=== PATIENT | male | born 1955 | race Caucasian/White ===

== ENCOUNTER 2020-03-01 18:20 | Emergency (ER) | payer BC, SELFPAY ==
[~2020-03-01] VITALS: Ht 165.1 cm; Wt 73.9 kg
[2020-03-01] MEDS ORDERED: KETOROLAC TROMETHAMINE 60 MG/2 ML VIAL IM ONE (18:30)
[2020-03-01 18:32] VITALS: BP_SYST 153
[2020-03-01 19:12] LABS: MEAN CORPUSCULAR VOLUME 86 fL (79.0-98.0); WHITE BLOOD COUNT (AUTO) 17.3 K/uL (4.8-10.8)
[2020-03-01 19:17] LABS: BASOPHILS % (AUTO) 0.2 % (0.0-2.0); HEMATOCRIT 40.1 % (36-54); HEMOGLOBIN 13.9 g/dL (14.0-18.0); LYMPHOCYTES # (AUTO) 0.6 K/uL (1.0-5.5); LYMPHOCYTES % (AUTO) 3.7 % (20.5-51.5); MEAN CORPUSCULAR HEMOGLOBIN 30 pg (27-31); MEAN CORPUSCULAR HGB CONC 35 % (32-36); MONOCYTES # (AUTO) 0.9 K/uL (0.0-1.0); NEUTROPHILS # (AUTO) 15.8 K/uL (1.8-7.7); NEUTROPHILS % (AUTO) 91.1 % (40.0-70.0); PLATELET COUNT (AUTO) 224 K/uL (130-430); RED BLOOD CELL COUNT(AUTO) 4.67 MIL/uL (4.2-6.2); RED CELL DISTRIBUTION WIDTH 14.7 % (9.0-15.0)
[2020-03-01 19:21] LABS: CREATININE 1.03 mg/dL (0.55-1.30); POTASSIUM 3.6 mmol/L (3.5-5.1)
[2020-03-01 19:25] LABS: BILIRUBIN,URINE NEGATIVE (NEGATIVE); BLOOD, URINE 1+ (NEGATIVE); CLARITY/URINE CLEAR (CLEAR); COLOR,URINE YELLOW (YELLOW); GLUCOSE,URINE 3+ (NEGATIVE); KETONES,URINE 2+ (NEGATIVE); LEUKOCYTE ESTERASE ,URINE NEGATIVE (NEGATIVE); NITRITE, URINE NEGATIVE (NEGATIVE); PROTEIN URINE 3+ (NEGATIVE); UROBILINOGEN,URINE 0.2 (0.2-1.0)
[2020-03-01 19:26] LABS: ALBUMIN 3.4 g/dL (3.4-4.8)
[2020-03-01 19:27] LABS: PROTHROMBIN TIME 10.3 SECS (9.5-12.5)
[2020-03-01 19:39] LABS: BACTERIA,URINE FEW /HPF (None Seen); WBC,URINE 0-3 /HPF (0-3)
[2020-03-01] MEDS ORDERED: PIPERACILLIN/TAZO 3.375 GM in NS 50 ML IV ONE (20:30)
[2020-03-01] MEDS ORDERED: CIPROFLOXACIN HCL 500 MG TABLET PO ONE (22:15)
[2020-03-01] MEDS ORDERED: metroNIDAZOLE 500 MG TABLET PO ONE (22:15)
[2020-03-01] MEDS ORDERED: metroNIDAZOLE 500 MG TABLET ONE (22:27)
[2020-03-01 23:00] VITALS: BP_SYST 132
[2020-03-02] MEDS ORDERED: GLIP10TA21 PO (18:37)
[2020-03-02] MEDS ORDERED: METF1000 PO (18:37)
[2020-03-02] MEDS ORDERED: CARV25TA55 PO (18:37)
[2020-03-02] MEDS ORDERED: NOR10 PO (18:37)
[2020-03-02] MEDS ORDERED: BENA40TA8 PO (18:37)
[2020-03-02] MEDS ORDERED: CANA100T PO (18:37)
[2020-03-02] MEDS ORDERED: LIP40 PO (18:37)
[2020-03-02] MEDS ORDERED: CAT.2 PO (18:37)
[2020-03-02] MEDS ORDERED: SAXA5TAB PO (18:37)
== END 2020-03-01 23:00 | disposition home or self-care (01) ==
LOC: SED 18:20
DX: K80.20 Calculus of gallbladder without cholecystitis without obstruction (principal); I10 Essential (primary) hypertension; E11.9 Type 2 diabetes mellitus without complications; Z20.822 Contact with and (suspected) exposure to COVID-19
CPT/HCPCS: 36415; 74176; 76376; 76700; 80053; 81000; 82150; 83605; 83615; 83690; 85025; 85610; 85730; 87040; 87426; 96372; 99285; J1885

== ENCOUNTER 2020-03-02 15:20 | Inpatient (IN) | payer BC, OTHER, SELFPAY ==
[~2020-03-02] VITALS: Ht 165.1 cm; Wt 74.4 kg
[2020-03-02 15:30] VITALS: BP_SYST 127
[2020-03-02] MEDS ORDERED: ONDANSETRON HCL 4 MG/2 ML VIAL IVP ONE (15:30)
[2020-03-02] MEDS ORDERED: MAG HYDROX/AL HYDROX/SIMETH 30 ML, DICYCLOMINE HCL 20 MG, LIDOCAINE VISCOUS 2% 15ML (PO... PO ONE ×3 (15:30)
[2020-03-02] MEDS ORDERED: MORPHINE 4 MG/ML INJ. SYRINGE IVP ONE (15:30)
[2020-03-02] MEDS ORDERED: LIDOCAINE VISCOUS 2%, 15 ML UDC ONE (16:10)
[2020-03-02] MEDS ORDERED: MAG-AL HYDROX/SIMETH 30 ML UDC ONE (16:10)
[2020-03-02] MEDS ORDERED: DICYCLOMINE HCL 10 MG/5 ML SOLUTION ONE (16:11)
[2020-03-02 16:15] LABS: BASOPHILS # (AUTO) 0.1 K/uL (0.0-0.2); BASOPHILS % (AUTO) 0.6 % (0.0-2.0); EOSINOPHILS % (AUTO) 0.1 % (0.0-4.0); HEMATOCRIT 37.6 % (36-54); HEMOGLOBIN 12.9 g/dL (14.0-18.0); LYMPHOCYTES # (AUTO) 0.6 K/uL (1.0-5.5); LYMPHOCYTES % (AUTO) 3.3 % (20.5-51.5); MEAN CORPUSCULAR HEMOGLOBIN 30 pg (27-31); MEAN CORPUSCULAR HGB CONC 34 % (32-36); MEAN CORPUSCULAR VOLUME 86 fL (79.0-98.0); MONOCYTES # (AUTO) 1.1 K/uL (0.0-1.0); MONOCYTES % (AUTO) 5.9 % (1.7-9.3); NEUTROPHILS # (AUTO) 16.8 K/uL (1.8-7.7); NEUTROPHILS % (AUTO) 90.1 % (40.0-70.0); PLATELET COUNT (AUTO) 195 K/uL (130-430); RED BLOOD CELL COUNT(AUTO) 4.35 MIL/uL (4.2-6.2); RED CELL DISTRIBUTION WIDTH 14.6 % (9.0-15.0); WHITE BLOOD COUNT (AUTO) 18.6 K/uL (4.8-10.8)
[2020-03-02 16:24] LABS: CALCIUM 8.6 mg/dL (8.4-11.0); CREATININE 1.29 mg/dL (0.55-1.30); POTASSIUM 4.1 mmol/L (3.5-5.1)
[2020-03-02 16:26] LABS: INR 1.1 (0.80-1.20); PROTHROMBIN TIME 10.9 SECS (9.5-12.5)
[2020-03-02 16:30] LABS: TOTAL BILIRUBIN 1.1 mg/dL (0.0-1.0)
[2020-03-02 16:49] LABS: BILIRUBIN,URINE NEGATIVE (NEGATIVE); BLOOD, URINE 1+ (NEGATIVE); CLARITY/URINE CLEAR (CLEAR); COLOR,URINE YELLOW (YELLOW); GLUCOSE,URINE 3+ (NEGATIVE); KETONES,URINE 1+ (NEGATIVE); LEUKOCYTE ESTERASE ,URINE NEGATIVE (NEGATIVE); NITRITE, URINE NEGATIVE (NEGATIVE); PH,URINE 5.5 (5.0-8.0); PROTEIN URINE 2+ (NEGATIVE); UROBILINOGEN,URINE 0.2 (0.2-1.0)
[2020-03-02 16:55] LABS: BACTERIA,URINE FEW /HPF (None Seen); MUCUS,URINE None Seen /LPF (None Seen); RBC,URINE 0-3 /HPF (0-3); WBC,URINE 0-3 /HPF (0-3)
[2020-03-02] MEDS ORDERED: KCL 20 mEq in D5/0.45NS 1000mL 1,000 ML IV ONE (18:15)
[2020-03-02] MEDS ORDERED: cefTRIAXone 1 GM VIAL IM ONE (18:15)
[2020-03-02] MEDS ORDERED: metroNIDAZOLE 500 mg/NS 100 ML IV ONE (18:15)
[2020-03-02] MEDS ORDERED: CANA100T PO (18:37)
[2020-03-02] MEDS ORDERED: CAT.2 PO (18:37)
[2020-03-02] MEDS ORDERED: CARV25TA55 PO (18:37)
[2020-03-02] MEDS ORDERED: GLIP10TA21 PO (18:37)
[2020-03-02] MEDS ORDERED: NOR10 PO (18:37)
[2020-03-02] MEDS ORDERED: METF1000 PO (18:37)
[2020-03-02] MEDS ORDERED: LIP40 PO (18:37)
[2020-03-02] MEDS ORDERED: BENA40TA8 PO (18:37)
[2020-03-02] MEDS ORDERED: SAXA5TAB PO (18:37)
[2020-03-02 22:44] VITALS: BP_SYST 151
[2020-03-02] MEDS ORDERED: ONDANSETRON HCL 4 MG/2 ML VIAL IVP PRN (23:45)
[2020-03-03] VITALS: BP_SYST 152
[2020-03-03] MEDS: HYDROmorphone 1 MG INJ. 1 MG/ML AMPUL IVP PRN ×2 (00:10→06:24)
[2020-03-03] MEDS ORDERED: metroNIDAZOLE 500 mg/NS 100 ML IV ONE (03:57)
[2020-03-03] MEDS: metroNIDAZOLE 500 mg/NS 100 ML IV SCH ×3 (05:34→22:32)
[2020-03-03] MEDS: INSULIN REGULAR, HUMAN 100 UNITS/ML, 10 ML VIAL (humuLIN R) SUBCUT PRN ×2 (06:23→22:35)
[2020-03-03 07:22] LABS: BASOPHILS % (AUTO) 0.2 % (0.0-2.0); HEMATOCRIT 37.2 % (36-54); LYMPHOCYTES # (AUTO) 0.5 K/uL (1.0-5.5); LYMPHOCYTES % (AUTO) 3.1 % (20.5-51.5); MEAN CORPUSCULAR HEMOGLOBIN 30 pg (27-31); MEAN CORPUSCULAR HGB CONC 35 % (32-36); MEAN CORPUSCULAR VOLUME 86 fL (79.0-98.0); MONOCYTES % (AUTO) 6.1 % (1.7-9.3); NEUTROPHILS # (AUTO) 14.1 K/uL (1.8-7.7); NEUTROPHILS % (AUTO) 90.6 % (40.0-70.0); PLATELET COUNT (AUTO) 184 K/uL (130-430); RED BLOOD CELL COUNT(AUTO) 4.32 MIL/uL (4.2-6.2); RED CELL DISTRIBUTION WIDTH 14.4 % (9.0-15.0); WHITE BLOOD COUNT (AUTO) 15.6 K/uL (4.8-10.8)
[2020-03-03 08:00] VITALS: BP_SYST 166
[2020-03-03 08:14] LABS: ALBUMIN 2.8 g/dL (3.4-4.8); CALCIUM 8.4 mg/dL (8.4-11.0); CREATININE 0.95 mg/dL (0.55-1.30); POTASSIUM 3.7 mmol/L (3.5-5.1); TOTAL BILIRUBIN 1.1 mg/dL (0.0-1.0)
[2020-03-03] MEDS: CARVEDILOL 25 MG TABLET (COREG) PO SCH ×2 (08:42→22:32)
[2020-03-03] MEDS: ENOXAPARIN SODIUM 40 MG/0.4 ML SYRINGE SUBCUT SCH ×2 (08:43→08:49)
[2020-03-03 16:19] VITALS: BP_SYST 118
[2020-03-03 20:00] VITALS: BP_SYST 134
[2020-03-04] MEDS: metroNIDAZOLE 500 mg/NS 100 ML IV SCH ×3 (05:51→22:00)
[2020-03-04] MEDS: INSULIN REGULAR, HUMAN 100 UNITS/ML, 10 ML VIAL (humuLIN R) SUBCUT PRN ×3 (06:03→18:33)
[2020-03-04 06:59] LABS: BASOPHILS % (AUTO) 0.1 % (0.0-2.0); HEMATOCRIT 34.2 % (36-54); LYMPHOCYTES # (AUTO) 0.3 K/uL (1.0-5.5); LYMPHOCYTES % (AUTO) 3.7 % (20.5-51.5); MEAN CORPUSCULAR HEMOGLOBIN 30 pg (27-31); MEAN CORPUSCULAR HGB CONC 35 % (32-36); MEAN CORPUSCULAR VOLUME 87 fL (79.0-98.0); MONOCYTES # (AUTO) 0.5 K/uL (0.0-1.0); NEUTROPHILS # (AUTO) 8.2 K/uL (1.8-7.7); NEUTROPHILS % (AUTO) 90.2 % (40.0-70.0); PLATELET COUNT (AUTO) 175 K/uL (130-430); RED BLOOD CELL COUNT(AUTO) 3.95 MIL/uL (4.2-6.2); RED CELL DISTRIBUTION WIDTH 14.3 % (9.0-15.0); WHITE BLOOD COUNT (AUTO) 9.1 K/uL (4.8-10.8)
[2020-03-04 07:45] LABS: ALBUMIN 2.3 g/dL (3.4-4.8); CALCIUM 8.1 mg/dL (8.4-11.0); CREATININE 0.89 mg/dL (0.55-1.30); POTASSIUM 3.6 mmol/L (3.5-5.1); TOTAL BILIRUBIN 0.6 mg/dL (0.0-1.0)
[2020-03-04 07:50] VITALS: BP_SYST 129
[2020-03-04] MEDS: CARVEDILOL 25 MG TABLET (COREG) PO SCH ×2 (09:16→23:51)
[2020-03-04] MEDS: ENOXAPARIN SODIUM 40 MG/0.4 ML SYRINGE SUBCUT SCH (09:17)
[2020-03-04] MEDS ORDERED: CARVEDILOL 25 MG TABLET (COREG) PO ONE (11:00)
[2020-03-04] MEDS ORDERED: CANAGLIFLOZIN 100 MG TABLET PO SCH (11:00)
[2020-03-04 12:09] VITALS: BP_SYST 163
[2020-03-04 17:00] VITALS: BP_SYST 145
[2020-03-04] MEDS: metFORMIN HCL 500 MG TABLET PO SCH (18:31)
[2020-03-04] MEDS: glipiZIDE XL 5 MG TAB ( GLUCOTROL XL) PO SCH (23:51)
[2020-03-05] MEDS: INSULIN REGULAR, HUMAN 100 UNITS/ML, 10 ML VIAL (humuLIN R) SUBCUT PRN ×4 (00:02→20:53)
[2020-03-05 01:38] VITALS: BP_SYST 143
[2020-03-05] MEDS: metroNIDAZOLE 500 mg/NS 100 ML IV SCH ×3 (06:15→21:04)
[2020-03-05] MEDS: metFORMIN HCL 500 MG TABLET PO SCH ×2 (08:47→17:49)
[2020-03-05] MEDS: ATORVASTATIN 20 MG TABLET PO SCH (08:48)
[2020-03-05] MEDS: CARVEDILOL 25 MG TABLET (COREG) PO SCH ×2 (08:49→20:55)
[2020-03-05] MEDS: lisinopriL 20 MG TABLET PO SCH (08:50)
[2020-03-05] MEDS: ENOXAPARIN SODIUM 40 MG/0.4 ML SYRINGE SUBCUT SCH (08:58)
[2020-03-05] MEDS ORDERED: CARVEDILOL 25 MG TABLET (COREG) PO SCH (09:00)
[2020-03-05] MEDS: CANAGLIFLOZIN 100 MG TABLET PO SCH (09:00)
[2020-03-05] MEDS: amLODIPine BESYLATE 10 MG TABLET PO SCH (11:12)
[2020-03-05 12:52] VITALS: BP_SYST 145
[2020-03-05 16:34] VITALS: BP_SYST 160
[2020-03-05 20:00] VITALS: BP_SYST 153
[2020-03-05] MEDS: glipiZIDE XL 5 MG TAB ( GLUCOTROL XL) PO SCH (20:54)
[2020-03-06] VITALS: BP_SYST 147
[2020-03-06] MEDS: metroNIDAZOLE 500 mg/NS 100 ML IV SCH ×2 (05:15→14:04)
[2020-03-06] MEDS: INSULIN REGULAR, HUMAN 100 UNITS/ML, 10 ML VIAL (humuLIN R) SUBCUT PRN ×3 (05:22→17:24)
[2020-03-06 07:08] LABS: BASOPHILS % (AUTO) 0.2 % (0.0-2.0); EOSINOPHILS # (AUTO) 0.2 K/uL (0.0-0.4); EOSINOPHILS % (AUTO) 2.3 % (0.0-4.0); HEMATOCRIT 34.8 % (36-54); HEMOGLOBIN 12.2 g/dL (14.0-18.0); LYMPHOCYTES # (AUTO) 0.9 K/uL (1.0-5.5); LYMPHOCYTES % (AUTO) 12.8 % (20.5-51.5); MEAN CORPUSCULAR HEMOGLOBIN 30 pg (27-31); MEAN CORPUSCULAR HGB CONC 35 % (32-36); MEAN CORPUSCULAR VOLUME 86 fL (79.0-98.0); MONOCYTES # (AUTO) 0.7 K/uL (0.0-1.0); MONOCYTES % (AUTO) 9.9 % (1.7-9.3); NEUTROPHILS # (AUTO) 5.2 K/uL (1.8-7.7); NEUTROPHILS % (AUTO) 74.8 % (40.0-70.0); PLATELET COUNT (AUTO) 215 K/uL (130-430); RED BLOOD CELL COUNT(AUTO) 4.05 MIL/uL (4.2-6.2); RED CELL DISTRIBUTION WIDTH 13.7 % (9.0-15.0); WHITE BLOOD COUNT (AUTO) 6.9 K/uL (4.8-10.8)
[2020-03-06 07:25] LABS: CALCIUM 7.7 mg/dL (8.4-11.0); CREATININE 0.68 mg/dL (0.55-1.30); PHOSPHORUS 2.1 mg/dL (2.7-4.5); POTASSIUM 3.3 mmol/L (3.5-5.1)
[2020-03-06 08:00] VITALS: BP_SYST 152
[2020-03-06] MEDS: CANAGLIFLOZIN 100 MG TABLET PO SCH (09:00)
[2020-03-06] MEDS ORDERED: amLODIPine BESYLATE 10 MG TABLET ONE (09:07)
[2020-03-06] MEDS: metFORMIN HCL 500 MG TABLET PO SCH (09:15)
[2020-03-06] MEDS: ATORVASTATIN 20 MG TABLET PO SCH (09:16)
[2020-03-06] MEDS: lisinopriL 20 MG TABLET PO SCH ×2 (09:17→09:19)
[2020-03-06] MEDS: CARVEDILOL 25 MG TABLET (COREG) PO SCH (09:18)
[2020-03-06] MEDS: amLODIPine BESYLATE 10 MG TABLET PO SCH (09:18)
[2020-03-06] MEDS: ENOXAPARIN SODIUM 40 MG/0.4 ML SYRINGE SUBCUT SCH (09:22)
[2020-03-06 12:00] VITALS: BP_SYST 155
[2020-03-06 16:00] VITALS: BP_SYST 135
[2020-03-06] MEDS ORDERED: POTASSIUM CHLORIDE 20 MEQ TAB.PRT.SR PO ONE (16:00)
[2020-03-06] MEDS ORDERED: METR500T PO (16:27)
[2020-03-06] MEDS ORDERED: LEVO750T45 PO (16:27)
[2020-03-06] MEDS ORDERED: POTASSIUM CHLORIDE 20 MEQ TAB.PRT.SR ONE (16:52)
[2020-03-06 16:53] VITALS: BP_SYST 135
== END 2020-03-06 18:40 | disposition home or self-care (01) | DRG 417 ==
LOC: SED 15:20 → SMU 18:12
PROVIDERS: ADMIT Family Medicine; ATTEND Family Medicine
PROC: 0FT44ZZ Resection of Gallbladder, Percutaneous Endoscopic Approach (ICD-10-PCS; principal; 2020-03-03 12:00)
DX: K81.0 Acute cholecystitis (principal); E11.00 Type 2 diabetes mellitus with hyperosmolarity without nonketotic hyperglycemic-hyperosmolar coma (NKHHC); E87.1 Hypo-osmolality and hyponatremia; K82.A1 Gangrene of gallbladder in cholecystitis; E11.9 Type 2 diabetes mellitus without complications; E78.5 Hyperlipidemia, unspecified; I10 Essential (primary) hypertension; Z20.822 Contact with and (suspected) exposure to COVID-19; Z79.84 Long term (current) use of oral hypoglycemic drugs; Z79.899 Other long term (current) drug therapy
CPT/HCPCS: 36415; 71045; 76705; 80048; 80053; 81000-TC; 82962; 83690-TC; 83735-TC; 84100-TC; 85025; 85610-TC; 86886; 86900; 86901; 87040-TC; 87081; 88304; 93005; 96365; 96372; 96375; C1727; J0696; J1170; J1650; J1815; J1956; J2001; J2270; J2405; J3490